=== PATIENT | female | born 1945 | race Caucasian/White ===

== ENCOUNTER 2017-03-17 21:18 | Inpatient (IN) | payer MEDICARE, BC ==
[~2017-03-17] VITALS: Ht 157.5 cm; Wt 46.4 kg
[~2017-03-17 21:18] MED LIST: ASPI-1009 PO; ATOR10TA PO; CHOL10002 PO; CYAN-19 PO; DENO60DI SQ; FERGLU300T PO; LORA10CA PO; NITR-79 PO; NITR100C6 PO; OMEP40CA37 PO; OXYB5TAB11 PO; VALS1TAB81 PO
[2017-03-17] MEDS ORDERED: iohexol 300mg/ml 100ml inj. ONE (21:58)
[2017-03-17 22:05] LABS: HEMATOCRIT 38.7 % (35.0-45.0); HEMOGLOBIN 12.6 g/dl (12.0-16.0); MEAN CORPUSCULAR HEMOGLOBIN 24.1 PG (27.0-31.0); MEAN CORPUSCULAR HGB CONC 32.4 % (33.0-36.5); MEAN CORPUSCULAR VOLUME 74.2 FL (78-98); PLATELET COUNT 266 X10'3 (140-440); RED BLOOD COUNT 5.22 X10'6 (4.20-5.60); RED CELL DISTRIBUTION WIDTH 25.9 % (11.5-14.5); WHITE BLOOD COUNT 11.8 X10'3 (4.5-11.0)
[2017-03-17 22:18] LABS: PARTIAL THROMBOPLASTIN TIME 24 SECONDS (22-32)
[2017-03-17 22:28] LABS: ALANINE AMINOTRANSFERASE 23 U/L (12-78); ALBUMIN 3.9 G/DL (3.4-5.0); ALKALINE PHOSPHATASE 100 IU/L (46-116); ANION GAP 12 (8-16); ASPARTATE AMINO TRANSFERASE 19 U/L (10-37); BILIRUBIN,TOTAL 0.3 MG/DL (0.1-1.0); BLOOD UREA NITROGEN 7 MG/DL (7-18); BUN/CREATININE RATIO 7.7 (6.6-38.0); CALCIUM 8.8 MG/DL (8.5-10.1); CHLORIDE 102 MMOL/L (99-107); CREATININE 0.91 MG/DL (0.40-0.90); GLUCOSE 135 MG/DL (70-104); POTASSIUM 3.6 MMOL/L (3.5-5.1); SODIUM 138 MMOL/L (135-145); TOTAL CARBON DIOXIDE 23.8 MMOL/L (24-32); TOTAL PROTEIN 7.9 G/DL (6.4-8.2); eGFR 61 ML/MIN
[2017-03-17 22:29] LABS: MAGNESIUM 2.2 MG/DL (1.5-2.4)
[2017-03-17 22:44] LABS: ANISOCYTOSIS 3+; PLATELET ESTIMATE NORMAL; TOTAL CELLS COUNTED 100
[2017-03-17 22:45] LABS: MICROCYTOSIS 1+
[2017-03-17 22:46] LABS: ELLIPTOCYTES 1+; TARGET CELLS FEW
[2017-03-17 23:36] LABS: CLARITY,URINE Clear (Clear); COLOR,URINE Yellow (Yellow); GLUCOSE, URINE Negative (Neg); KETONES,URINE Negative (Neg); LEUKOCYTE ESTERASE ,URINE Negative (Neg); NITRITES, URINE Negative (Neg); OCCULT BLOOD,URINE Negative (Neg); PH,URINE 7.5 (4.8-8.0); PROTEIN,URINE 30 mg/dl (Neg); UROBILINOGEN,URINE 0.2 E.U/dL (0.2-1.0)
[2017-03-17] MEDS ORDERED: acetaminophen 325mg tablet PO ONE (23:40)
[2017-03-17 23:59] LABS: UA COLLECTION TYPE STRAIGHT CATH
[2017-03-18 00:28] LABS: BACTERIA,URINE NONE SEEN /HPF (Neg); MUCUS STRANDS NONE SEEN /LPF (Neg); RBC,URINE NONE SEEN /HPF (0-2); SQUAMOUS EPITHELIAL CELL,UR FEW /LPF (FEW); WBC,URINE 0-4 /HPF (0-4)
[2017-03-18] MEDS ORDERED: diphenhydrAMINE 25mg capsule PO PRN (00:30)
[2017-03-18] MEDS ORDERED: acetaminophen 325mg tablet PO PRN ×2 (00:30)
[2017-03-18] MEDS ORDERED: diphenhydrAMINE 50 mg/ml inj IV PRN (00:30)
[2017-03-18] MEDS ORDERED: metoclopramide 5 mg/ml inj IV PRN (00:30)
[2017-03-18] MEDS ORDERED: bisacodyl 10mg suppository rectal RC PRN (00:30)
[2017-03-18] MEDS ORDERED: HYDROmorphone 1 mg/ml syringe IV PRN ×2 (00:30)
[2017-03-18] MEDS ORDERED: acetaminophen 650mg rectal suppository RC PRN (00:30)
[2017-03-18] MEDS ORDERED: nicotine 21mg patch - 24 hr TD ONE (00:30)
[2017-03-18] MEDS ORDERED: magnesium hydroxide 30ml (MOM) UD suspension PO PRN (00:30)
[2017-03-18] MEDS ORDERED: HYDROcodone/acetaminophen 5mg/325mg tablet PO PRN (00:30)
[2017-03-18 01:09] LABS: PHOSPHORUS 3.5 MG/DL (2.3-4.5)
[2017-03-18] MEDS: normal saline 1000ml 1,000 ML IV SCH ×3 (01:22→20:42)
[2017-03-18 07:30] VITALS: BP_SYST 172; BP_SYST 177; BP_DIAS 75; BP_DIAS 77
[2017-03-18] MEDS: HYDROcodone/acetaminophen 10/325mg tab PO PRN ×2 (07:31→22:56)
[2017-03-18] MEDS ORDERED: non-formulary drug (Omeprazole (Prilosec) 1 CAP) PO SCH (08:00)
[2017-03-18] MEDS: docusate sod 100mg capsule PO SCH ×2 (08:00→20:00)
[2017-03-18] MEDS: HYDROchlorothiazide 25mg tablet PO SCH (08:04)
[2017-03-18] MEDS: oxybutynin 5mg tablet PO SCH (08:04)
[2017-03-18] MEDS: aspirin 81mg tablet.DR PO SCH (08:04)
[2017-03-18] MEDS: pantoprazole 40mg Tablet.DR PO SCH (08:04)
[2017-03-18] MEDS: heparin, porcine 5000 units/ml vial SQ SCH ×2 (08:05→20:31)
[2017-03-18] MEDS: ferrous gluconate 324mg tablet PO SCH ×2 (09:55→12:30)
[2017-03-18 11:00] VITALS: BP 150/112
[2017-03-18] MEDS ORDERED: levetiracetam 250mg tablet PO ONE (11:00)
[2017-03-18 15:00] VITALS: BP 156/70
[2017-03-18 19:00] VITALS: BP 160/82
[2017-03-18] MEDS: levetiracetam 250mg tablet PO SCH (20:30)
[2017-03-18] MEDS: famotidine 20mg tablet PO SCH (20:30)
[2017-03-18] MEDS: atorvastatin 10mg tablet PO SCH (20:30)
[2017-03-18] MEDS ORDERED: temazepam 15mg capsule PO PRN (21:00)
[2017-03-18 22:00] VITALS: BP 186/82
[2017-03-19 06:00] VITALS: BP 152/75
[2017-03-19 07:02] LABS: HEMATOCRIT 34.1 % (35.0-45.0); HEMOGLOBIN 10.9 g/dl (12.0-16.0); MEAN CORPUSCULAR HEMOGLOBIN 23.7 PG (27.0-31.0); MEAN CORPUSCULAR HGB CONC 31.9 % (33.0-36.5); MEAN CORPUSCULAR VOLUME 74.2 FL (78-98); MEAN PLATELET VOLUME 8.7 FL (7.4-10.4); PLATELET COUNT 222 X10'3 (140-440); RED CELL DISTRIBUTION WIDTH 25.3 % (11.5-14.5); WHITE BLOOD COUNT 4.7 X10'3 (4.5-11.0)
[2017-03-19 07:33] LABS: EOSINOPHILS % (MANUAL) 2 % (0-6); LYMPHOCYTES % (MANUAL) 45 % (21-51); MONOCYTES % (MANUAL) 9 % (2-12); NEUTROPHILS % (MANUAL) 44 % (42-75); TOTAL CELLS COUNTED 100
[2017-03-19 07:34] LABS: ANISOCYTOSIS 3+; PLATELET ESTIMATE NORMAL; SMUDGE CELLS FEW
[2017-03-19 07:35] LABS: ELLIPTOCYTES 1+; SCHISTOCYTES FEW; TARGET CELLS FEW
[2017-03-19 07:40] LABS: ALANINE AMINOTRANSFERASE 19 U/L (12-78); ALBUMIN 2.9 G/DL (3.4-5.0); ALBUMIN/GLOBULIN RATIO 0.9 (1.1-1.5); ALKALINE PHOSPHATASE 81 IU/L (46-116); ANION GAP 8 (8-16); ASPARTATE AMINO TRANSFERASE 16 U/L (10-37); BILIRUBIN,TOTAL 0.3 MG/DL (0.1-1.0); BLOOD UREA NITROGEN 12 MG/DL (7-18); CALCIUM 8.4 MG/DL (8.5-10.1); CHLORIDE 106 MMOL/L (99-107); CREATININE 0.86 MG/DL (0.40-0.90); GLUCOSE 85 MG/DL (70-104); POTASSIUM 3.4 MMOL/L (3.5-5.1); SODIUM 139 MMOL/L (135-145); TOTAL CARBON DIOXIDE 25.2 MMOL/L (24-32); TOTAL PROTEIN 6.2 G/DL (6.4-8.2); eGFR 65 ML/MIN
[2017-03-19] MEDS: normal saline 1000ml 1,000 ML IV SCH (07:56)
[2017-03-19] MEDS: HYDROchlorothiazide 25mg tablet PO SCH (07:57)
[2017-03-19] MEDS: famotidine 20mg tablet PO SCH ×2 (07:57→21:40)
[2017-03-19] MEDS: aspirin 81mg tablet.DR PO SCH (07:57)
[2017-03-19] MEDS: pantoprazole 40mg Tablet.DR PO SCH (07:57)
[2017-03-19] MEDS: levetiracetam 250mg tablet PO SCH ×2 (07:57→21:40)
[2017-03-19] MEDS: HYDROcodone/acetaminophen 10/325mg tab PO PRN (07:58)
[2017-03-19] MEDS: oxybutynin 5mg tablet PO SCH (07:58)
[2017-03-19] MEDS: docusate sod 100mg capsule PO SCH ×2 (08:00→20:00)
[2017-03-19] MEDS: loratadine 10mg tablet PO SCH (08:00)
[2017-03-19] MEDS: vitamin D (cholecalciferol) 1,000 unit tablet PO SCH (08:00)
[2017-03-19] MEDS: ferrous gluconate 324mg tablet PO SCH (08:00)
[2017-03-19] MEDS: cyanocobalamin 500mcg tablet PO SCH (08:00)
[2017-03-19] MEDS: heparin, porcine 5000 units/ml vial SQ SCH ×2 (08:06→21:40)
[2017-03-19 10:00] VITALS: BP 135/69
[2017-03-19] MEDS: nicotine 21mg patch - 24 hr TD SCH (11:08)
[2017-03-19] MEDS ORDERED: potassium Cl 40MEQ/NS 500ml 500 ML IV PRN ×2 (13:30)
[2017-03-19] MEDS ORDERED: potassium Cl 20 mEq SR tablet PO PRN ×2 (13:30)
[2017-03-19 19:00] VITALS: BP 156/115
[2017-03-19] MEDS: atorvastatin 10mg tablet PO SCH (21:40)
[2017-03-19] MEDS: diatr meglu/diatrizoate 30ml oral sol.-(3 dose) bottle PO SCH (21:41)
[2017-03-19 22:00] VITALS: BP 158/84
[2017-03-20] MEDS: ondansetron/PF 4mg/2ml inj IV PRN ×3 (01:47→23:13)
[2017-03-20 06:00] VITALS: BP 132/71
[2017-03-20 06:52] LABS: BASOPHILS % (AUTO) 0.1 % (0-1); EOSINOPHILS # (AUTO) 0.2 X10'3 (0-0.9); EOSINOPHILS % (AUTO) 4.3 % (0-6); HEMATOCRIT 33.9 % (35.0-45.0); LYMPHOCYTES # (AUTO) 1.5 X10'3 (1.1-4.8); LYMPHOCYTES % (AUTO) 28.8 % (21-51); MEAN CORPUSCULAR HGB CONC 32.5 % (33.0-36.5); MEAN CORPUSCULAR VOLUME 73.9 FL (78-98); MEAN PLATELET VOLUME 8.8 FL (7.4-10.4); MONOCYTES # (AUTO) 0.5 X10'3 (0-0.9); MONOCYTES % (AUTO) 8.7 % (2-12); NEUTROPHILS # (AUTO) 3.1 X10'3 (1.8-7.7); NEUTROPHILS % (AUTO) 58.1 % (42-75); PLATELET COUNT 226 X10'3 (140-440); RED BLOOD COUNT 4.59 X10'6 (4.20-5.60); RED CELL DISTRIBUTION WIDTH 24.8 % (11.5-14.5); WHITE BLOOD COUNT 5.3 X10'3 (4.5-11.0)
[2017-03-20 07:00] LABS: ALANINE AMINOTRANSFERASE 76 U/L (12-78); ALBUMIN/GLOBULIN RATIO 0.9 (1.1-1.5); ALKALINE PHOSPHATASE 157 IU/L (46-116); ANION GAP 7 (8-16); ASPARTATE AMINO TRANSFERASE 62 U/L (10-37); BILIRUBIN,TOTAL 0.4 MG/DL (0.1-1.0); BLOOD UREA NITROGEN 14 MG/DL (7-18); BUN/CREATININE RATIO 15.2 (6.6-38.0); CALCIUM 9.2 MG/DL (8.5-10.1); CHLORIDE 104 MMOL/L (99-107); CREATININE 0.92 MG/DL (0.40-0.90); GLUCOSE 83 MG/DL (70-104); POTASSIUM 4.1 MMOL/L (3.5-5.1); SODIUM 139 MMOL/L (135-145); TOTAL CARBON DIOXIDE 28.4 MMOL/L (24-32); TOTAL PROTEIN 6.4 G/DL (6.4-8.2); eGFR 60 ML/MIN
[2017-03-20] MEDS: cyanocobalamin 500mcg tablet PO SCH (08:00)
[2017-03-20] MEDS: vitamin D (cholecalciferol) 1,000 unit tablet PO SCH (08:00)
[2017-03-20] MEDS: ferrous gluconate 324mg tablet PO SCH (08:00)
[2017-03-20] MEDS: loratadine 10mg tablet PO SCH (08:00)
[2017-03-20] MEDS: docusate sod 100mg capsule PO SCH ×2 (08:00→20:33)
[2017-03-20] MEDS: nicotine 21mg patch - 24 hr TD SCH (08:14)
[2017-03-20] MEDS: pantoprazole 40mg Tablet.DR PO SCH (08:16)
[2017-03-20] MEDS: famotidine 20mg tablet PO SCH ×2 (08:17→20:33)
[2017-03-20] MEDS: levetiracetam 250mg tablet PO SCH ×2 (08:17→20:33)
[2017-03-20] MEDS: aspirin 81mg tablet.DR PO SCH (08:18)
[2017-03-20] MEDS: HYDROchlorothiazide 25mg tablet PO SCH (08:18)
[2017-03-20] MEDS: oxybutynin 5mg tablet PO SCH (08:19)
[2017-03-20] MEDS: heparin, porcine 5000 units/ml vial SQ SCH ×2 (08:20→20:32)
[2017-03-20] MEDS: diatr meglu/diatrizoate 30ml oral sol.-(3 dose) bottle PO SCH ×2 (08:27→10:39)
[2017-03-20 09:43] LABS: ANISOCYTOSIS 3+; PLATELET ESTIMATE NORMAL
[2017-03-20 09:45] LABS: ELLIPTOCYTES 1+; SCHISTOCYTES FEW; TARGET CELLS FEW
[2017-03-20 10:00] VITALS: BP 126/69
[2017-03-20] MEDS ORDERED: iohexol 300mg/ml 100ml inj. ONE (10:31)
[2017-03-20] MEDS: HYDROcodone/acetaminophen 10/325mg tab PO PRN (13:50)
[2017-03-20] MEDS ORDERED: bisacodyl 10mg suppository rectal RC STA (16:46)
[2017-03-20 19:00] VITALS: BP 131/73
[2017-03-20] MEDS: atorvastatin 10mg tablet PO SCH (20:33)
[2017-03-20 23:00] VITALS: BP 136/12
[2017-03-21 03:58] LABS: OCCULT BLOOD STOOL NEGATIVE (Neg)
[2017-03-21 05:00] VITALS: BP 150/75
[2017-03-21 06:22] LABS: BASOPHILS % (AUTO) 0.4 % (0-1); EOSINOPHILS # (AUTO) 0.1 X10'3 (0-0.9); EOSINOPHILS % (AUTO) 2.7 % (0-6); HEMATOCRIT 34.9 % (35.0-45.0); HEMOGLOBIN 11.1 g/dl (12.0-16.0); LYMPHOCYTES # (AUTO) 1.4 X10'3 (1.1-4.8); LYMPHOCYTES % (AUTO) 25.8 % (21-51); MEAN CORPUSCULAR HGB CONC 31.9 % (33.0-36.5); MEAN CORPUSCULAR VOLUME 75.1 FL (78-98); MEAN PLATELET VOLUME 8.8 FL (7.4-10.4); MONOCYTES # (AUTO) 0.5 X10'3 (0-0.9); MONOCYTES % (AUTO) 9.2 % (2-12); NEUTROPHILS # (AUTO) 3.4 X10'3 (1.8-7.7); NEUTROPHILS % (AUTO) 61.9 % (42-75); PLATELET COUNT 225 X10'3 (140-440); RED BLOOD COUNT 4.65 X10'6 (4.20-5.60); RED CELL DISTRIBUTION WIDTH 25.2 % (11.5-14.5); WHITE BLOOD COUNT 5.5 X10'3 (4.5-11.0)
[2017-03-21 07:25] LABS: ALANINE AMINOTRANSFERASE 47 U/L (12-78); ALBUMIN 3.1 G/DL (3.4-5.0); ALBUMIN/GLOBULIN RATIO 0.9 (1.1-1.5); ALKALINE PHOSPHATASE 132 IU/L (46-116); ANION GAP 6 (8-16); ASPARTATE AMINO TRANSFERASE 29 U/L (10-37); BILIRUBIN,TOTAL 0.3 MG/DL (0.1-1.0); BLOOD UREA NITROGEN 14 MG/DL (7-18); BUN/CREATININE RATIO 15.9 (6.6-38.0); CHLORIDE 101 MMOL/L (99-107); CREATININE 0.88 MG/DL (0.40-0.90); GLUCOSE 86 MG/DL (70-104); POTASSIUM 4.1 MMOL/L (3.5-5.1); SODIUM 135 MMOL/L (135-145); TOTAL CARBON DIOXIDE 27.7 MMOL/L (24-32); TOTAL PROTEIN 6.6 G/DL (6.4-8.2); eGFR 63 ML/MIN
[2017-03-21] MEDS: vitamin D (cholecalciferol) 1,000 unit tablet PO SCH (08:00)
[2017-03-21] MEDS: pantoprazole 40mg Tablet.DR PO SCH (09:55)
[2017-03-21] MEDS: docusate sod 100mg capsule PO SCH ×3 (09:56→20:35)
[2017-03-21] MEDS: loratadine 10mg tablet PO SCH (09:56)
[2017-03-21] MEDS: oxybutynin 5mg tablet PO SCH (09:57)
[2017-03-21] MEDS: levetiracetam 250mg tablet PO SCH ×2 (09:57→20:33)
[2017-03-21] MEDS: ferrous gluconate 324mg tablet PO SCH (09:59)
[2017-03-21 10:00] VITALS: BP 155/85
[2017-03-21] MEDS: heparin, porcine 5000 units/ml vial SQ SCH ×2 (10:00→20:33)
[2017-03-21] MEDS: cyanocobalamin 500mcg tablet PO SCH (10:00)
[2017-03-21] MEDS: famotidine 20mg tablet PO SCH ×2 (10:01→20:33)
[2017-03-21] MEDS: HYDROchlorothiazide 25mg tablet PO SCH (10:01)
[2017-03-21] MEDS: nicotine 21mg patch - 24 hr TD SCH (10:01)
[2017-03-21] MEDS: aspirin 81mg tablet.DR PO SCH (10:01)
[2017-03-21 10:05] LABS: ANISOCYTOSIS 3+; PLATELET ESTIMATE NORMAL
[2017-03-21 10:06] LABS: ELLIPTOCYTES 1+; SCHISTOCYTES FEW; TARGET CELLS FEW
[2017-03-21 18:00] VITALS: BP 170/94
[2017-03-21] MEDS: atorvastatin 10mg tablet PO SCH ×2 (20:33→20:36)
[2017-03-21 22:00] VITALS: BP 141/71
[2017-03-22] MEDS: HYDROcodone/acetaminophen 10/325mg tab PO PRN (01:36)
[2017-03-22] MEDS: ondansetron/PF 4mg/2ml inj IV PRN ×2 (01:37→08:35)
[2017-03-22 02:00] VITALS: BP 130/69
[2017-03-22 05:00] VITALS: BP 120/67
[2017-03-22 05:50] LABS: HEMATOCRIT 34.3 % (35.0-45.0); MEAN CORPUSCULAR HEMOGLOBIN 23.9 PG (27.0-31.0); MEAN CORPUSCULAR HGB CONC 32.2 % (33.0-36.5); MEAN CORPUSCULAR VOLUME 74.3 FL (78-98); MEAN PLATELET VOLUME 8.9 FL (7.4-10.4); PLATELET COUNT 223 X10'3 (140-440); RED BLOOD COUNT 4.62 X10'6 (4.20-5.60); RED CELL DISTRIBUTION WIDTH 24.4 % (11.5-14.5); WHITE BLOOD COUNT 4.9 X10'3 (4.5-11.0)
[2017-03-22 07:23] LABS: ALANINE AMINOTRANSFERASE 44 U/L (12-78); ALBUMIN 3.1 G/DL (3.4-5.0); ALBUMIN/GLOBULIN RATIO 0.9 (1.1-1.5); ALKALINE PHOSPHATASE 127 IU/L (46-116); ANION GAP 10 (8-16); ASPARTATE AMINO TRANSFERASE 26 U/L (10-37); BILIRUBIN,TOTAL 0.3 MG/DL (0.1-1.0); BLOOD UREA NITROGEN 15 MG/DL (7-18); BUN/CREATININE RATIO 15.2 (6.6-38.0); CALCIUM 8.9 MG/DL (8.5-10.1); CHLORIDE 96 MMOL/L (99-107); CREATININE 0.99 MG/DL (0.40-0.90); GLUCOSE 92 MG/DL (70-104); POTASSIUM 3.8 MMOL/L (3.5-5.1); SODIUM 131 MMOL/L (135-145); TOTAL CARBON DIOXIDE 25.4 MMOL/L (24-32); TOTAL PROTEIN 6.7 G/DL (6.4-8.2); eGFR 55 ML/MIN
[2017-03-22 07:28] LABS: ANISOCYTOSIS 3+; NUCLEATED RED BLOOD CELLS 1 /100WBC (0-0); PLATELET ESTIMATE NORMAL; ROULEAUX 1+; TOTAL CELLS COUNTED 100
[2017-03-22 07:29] LABS: ELLIPTOCYTES 1+; HYPOCHROMASIA 1+; MICROCYTOSIS 1+; POLYCHROMASIA FEW; SCHISTOCYTES FEW
[2017-03-22 07:30] LABS: TARGET CELLS FEW
[2017-03-22] MEDS: cyanocobalamin 500mcg tablet PO SCH (08:00)
[2017-03-22] MEDS: vitamin D (cholecalciferol) 1,000 unit tablet PO SCH (08:00)
[2017-03-22] MEDS: loratadine 10mg tablet PO SCH (08:00)
[2017-03-22] MEDS: aspirin 81mg tablet.DR PO SCH (08:35)
[2017-03-22] MEDS: pantoprazole 40mg Tablet.DR PO SCH (08:35)
[2017-03-22] MEDS: levetiracetam 250mg tablet PO SCH ×2 (08:35→19:57)
[2017-03-22] MEDS: nicotine 21mg patch - 24 hr TD SCH (08:35)
[2017-03-22] MEDS: oxybutynin 5mg tablet PO SCH (08:35)
[2017-03-22] MEDS: HYDROchlorothiazide 25mg tablet PO SCH (08:35)
[2017-03-22] MEDS: heparin, porcine 5000 units/ml vial SQ SCH ×2 (08:36→19:56)
[2017-03-22] MEDS: docusate sod 100mg capsule PO SCH ×2 (08:36→19:56)
[2017-03-22] MEDS: ferrous gluconate 324mg tablet PO SCH (08:43)
[2017-03-22] MEDS: famotidine 20mg tablet PO SCH ×2 (08:43→19:56)
[2017-03-22 10:00] VITALS: BP 144/69
[2017-03-22] MEDS ORDERED: FERGLU300T PO (16:34)
[2017-03-22] MEDS ORDERED: DIO160T PO (16:36)
[2017-03-22] MEDS ORDERED: iohexol 350MG/ML 100ml bottle IV ONE (17:36)
[2017-03-22 18:00] VITALS: BP 168/91
[2017-03-22] MEDS: atorvastatin 10mg tablet PO SCH (19:57)
[2017-03-22 22:00] VITALS: BP 155/78
[2017-03-23 05:00] VITALS: BP 101/51
[2017-03-23] MEDS: HYDROcodone/acetaminophen 10/325mg tab PO PRN (05:29)
[2017-03-23] MEDS: mag hydrox/Alum hydrox/simeth 30ml oral suspension PO PRN ×2 (05:39→09:10)
[2017-03-23 06:30] LABS: HEMATOCRIT 36.2 % (35.0-45.0); HEMOGLOBIN 11.9 g/dl (12.0-16.0); MEAN CORPUSCULAR HEMOGLOBIN 24.4 PG (27.0-31.0); MEAN CORPUSCULAR HGB CONC 32.8 % (33.0-36.5); MEAN CORPUSCULAR VOLUME 74.4 FL (78-98); MEAN PLATELET VOLUME 8.7 FL (7.4-10.4); PLATELET COUNT 228 X10'3 (140-440); RED BLOOD COUNT 4.87 X10'6 (4.20-5.60); RED CELL DISTRIBUTION WIDTH 24.3 % (11.5-14.5); WHITE BLOOD COUNT 5.4 X10'3 (4.5-11.0)
[2017-03-23 06:50] LABS: ALANINE AMINOTRANSFERASE 40 U/L (12-78); ALBUMIN 3.2 G/DL (3.4-5.0); ALBUMIN/GLOBULIN RATIO 0.9 (1.1-1.5); ALKALINE PHOSPHATASE 119 IU/L (46-116); ANION GAP 6 (8-16); ASPARTATE AMINO TRANSFERASE 32 U/L (10-37); BILIRUBIN,TOTAL 0.2 MG/DL (0.1-1.0); BLOOD UREA NITROGEN 17 MG/DL (7-18); BUN/CREATININE RATIO 15.7 (6.6-38.0); CALCIUM 9.3 MG/DL (8.5-10.1); CHLORIDE 94 MMOL/L (99-107); CHOL/HDL RATIO 2.2 (0.00-4.99); CHOLESTEROL 124 MG/DL (0-200); CREATININE 1.08 MG/DL (0.40-0.90); GLUCOSE 95 MG/DL (70-104); HDL CHOLESTEROL 57 MG/DL (35-60); LDL CHOLESTEROL 60 MG/DL (50-100); POTASSIUM 5.2 MMOL/L (3.5-5.1); SODIUM 130 MMOL/L (135-145); TOTAL CARBON DIOXIDE 30.4 MMOL/L (24-32); TOTAL PROTEIN 6.9 G/DL (6.4-8.2); TRIGLYCERIDES 61 MG/DL (20-135); eGFR 50 ML/MIN
[2017-03-23 07:42] LABS: TOTAL CELLS COUNTED 100
[2017-03-23 07:43] LABS: ANISOCYTOSIS 3+; ELLIPTOCYTES 1+; HYPOCHROMASIA 1+; MICROCYTOSIS 1+; PLATELET ESTIMATE NORMAL; ROULEAUX 1+; SCHISTOCYTES FEW; TARGET CELLS FEW
[2017-03-23] MEDS: vitamin D (cholecalciferol) 1,000 unit tablet PO SCH (08:00)
[2017-03-23] MEDS: cyanocobalamin 500mcg tablet PO SCH (08:00)
[2017-03-23] MEDS ORDERED: aspirin/dipyridamole 25mg/200mg SR. capsule PO SCH (08:00)
[2017-03-23] MEDS: loratadine 10mg tablet PO SCH (08:00)
[2017-03-23] MEDS: pantoprazole 40mg Tablet.DR PO SCH (08:16)
[2017-03-23] MEDS: HYDROchlorothiazide 25mg tablet PO SCH (08:16)
[2017-03-23] MEDS: famotidine 20mg tablet PO SCH (08:16)
[2017-03-23] MEDS: levetiracetam 250mg tablet PO SCH (08:16)
[2017-03-23] MEDS: oxybutynin 5mg tablet PO SCH (08:16)
[2017-03-23] MEDS: docusate sod 100mg capsule PO SCH (08:16)
[2017-03-23] MEDS: ferrous gluconate 324mg tablet PO SCH (08:16)
[2017-03-23] MEDS: heparin, porcine 5000 units/ml vial SQ SCH (08:17)
[2017-03-23 10:00] VITALS: BP 114/52
[2017-03-23] MEDS ORDERED: ASPI1CPM4 PO (10:48)
[2017-03-23] MEDS ORDERED: nicotine 21mg patch - 24 hr TD ONE (11:05)
== END 2017-03-23 12:10 | disposition home or self-care (01) | DRG 312 ==
LOC: ER 21:19 → ED HOLD 03-18 00:28 → ORTHO 4S 03-18 07:15
PROVIDERS: ADMIT Family Medicine; ATTEND Family Medicine
PROC: 4B02XSZ Measurement of Cardiac Pacemaker, External Approach (ICD-10-PCS; 2017-03-18)
PROC: BW211ZZ Computerized Tomography (CT Scan) of Abdomen and Pelvis using Low Osmolar Contrast (ICD-10-PCS; principal; 2017-03-20)
PROC: B3281ZZ Computerized Tomography (CT Scan) of Bilateral Internal Carotid Arteries using Low Osmolar Contrast (ICD-10-PCS; 2017-03-22)
PROC: B3201ZZ Computerized Tomography (CT Scan) of Thoracic Aorta using Low Osmolar Contrast (ICD-10-PCS; 2017-03-22)
PROC: B32S1ZZ Computerized Tomography (CT Scan) of Right Pulmonary Artery using Low Osmolar Contrast (ICD-10-PCS; 2017-03-22)
PROC: B32T1ZZ Computerized Tomography (CT Scan) of Left Pulmonary Artery using Low Osmolar Contrast (ICD-10-PCS; 2017-03-22)
DX: R55 Syncope and collapse (principal); I67.1 Cerebral aneurysm, nonruptured; R18.8 Other ascites; E86.0 Dehydration; E03.9 Hypothyroidism, unspecified; I10 Essential (primary) hypertension; R19.7 Diarrhea, unspecified; N26.1 Atrophy of kidney (terminal); D72.829 Elevated white blood cell count, unspecified; R80.9 Proteinuria, unspecified; I73.9 Peripheral vascular disease, unspecified; K44.9 Diaphragmatic hernia without obstruction or gangrene; F17.210 Nicotine dependence, cigarettes, uncomplicated; Z90.49 Acquired absence of other specified parts of digestive tract; Z95.0 Presence of cardiac pacemaker; Z98.62 Peripheral vascular angioplasty status; Z88.2 Allergy status to sulfonamides; Z88.8 Allergy status to other drugs, medicaments and biological substances; Z79.82 Long term (current) use of aspirin; Z79.899 Other long term (current) drug therapy; Z87.11 Personal history of peptic ulcer disease
CPT/HCPCS: 36415; 70450; 70496; 70544; 70547; 70551; 71275; 74175; 74177; 80053; 80061; 81001; 82272; 83735; 83880; 84100; 84443; 84484; 85025; 85610; 85730; 87045; 87046; 87070; 89055; 93005; 93306; 93880; 99285; A4353; J1644; J2270; J2405; J7030; Q9963; Q9967

== ENCOUNTER → 2018-07-28 | Outpatient (CLI) | payer MEDICARE, BC, OTHER ==
[~2018-07-28] MED LIST changes: +ASPI1CPM4 PO; -CYAN-19 PO; +DIO160T PO; -LORA10CA PO; -NITR-79 PO; -NITR100C6 PO; -VALS1TAB81 PO
== END | disposition home or self-care (01) ==
LOC: RAD 10:52
DX: M50.221 Other cervical disc displacement at C4-C5 level (principal); M48.02 Spinal stenosis, cervical region; M25.78 Osteophyte, vertebrae; G45.9 Transient cerebral ischemic attack, unspecified; I10 Essential (primary) hypertension; Z95.0 Presence of cardiac pacemaker; Z87.891 Personal history of nicotine dependence
CPT/HCPCS: 72141

== ENCOUNTER 2018-12-08 08:35 | Outpatient (CLI) | payer MEDICARE, BC, OTHER ==
[~2018-12-08 08:35] MED LIST changes: +OMEP40CA13 PO; -OMEP40CA37 PO; -OXYB5TAB11 PO; +OXYB5TAB16 PO
== END 2018-12-08 23:59 | disposition home or self-care (01) ==
LOC: RAD 08:35
DX: G52.9 Cranial nerve disorder, unspecified (principal); R55 Syncope and collapse; I10 Essential (primary) hypertension; Z95.0 Presence of cardiac pacemaker; Z87.891 Personal history of nicotine dependence
CPT/HCPCS: 70544

== ENCOUNTER 2019-02-12 19:08 | Emergency (ER) | payer MEDICARE, BC, OTHER ==
[~2019-02-12] VITALS: Ht 160 cm; Wt 60.0 kg
[2019-02-12] MEDS ORDERED: nitroGLYCERIN 0.4mg/hour patch TD ONE (19:15)
[2019-02-12] MEDS ORDERED: hyDRALAzine 10mg tablet PO SCH (19:20)
[2019-02-12] MEDS ORDERED: hyDRALAzine 10mg tablet PO ONE (19:20)
[2019-02-12] MEDS ORDERED: hydrALAZINE 20mg/ml inj. IV ONE (19:20)
[2019-02-12 19:51] LABS: BASOPHILS # (AUTO) 0.1 X10'3 (0-0.2); BASOPHILS % (AUTO) 0.7 % (0-1); EOSINOPHILS # (AUTO) 0.1 X10'3 (0-0.9); EOSINOPHILS % (AUTO) 0.8 % (0-6); HEMATOCRIT 33.3 % (35.0-45.0); LYMPHOCYTES # (AUTO) 0.9 X10'3 (1.1-4.8); LYMPHOCYTES % (AUTO) 12.2 % (21-51); MEAN CORPUSCULAR HEMOGLOBIN 24.9 PG (27.0-31.0); MEAN CORPUSCULAR VOLUME 75.3 FL (78-98); MEAN PLATELET VOLUME 7.3 FL (7.4-10.4); MONOCYTES # (AUTO) 0.9 X10'3 (0-0.9); MONOCYTES % (AUTO) 11.5 % (2-12); NEUTROPHILS # (AUTO) 5.8 X10'3 (1.8-7.7); NEUTROPHILS % (AUTO) 74.8 % (42-75); PLATELET COUNT 281 X10'3 (140-440); RED BLOOD COUNT 4.42 X10'6 (4.20-5.60); RED CELL DISTRIBUTION WIDTH 18.5 % (11.5-14.5); WHITE BLOOD COUNT 7.8 X10'3 (4.5-11.0)
[2019-02-12 19:54] LABS: ALANINE AMINOTRANSFERASE 21 U/L (12-78); ALBUMIN 3.9 G/DL (3.4-5.0); ALBUMIN/GLOBULIN RATIO 0.9 (1.1-1.5); ALKALINE PHOSPHATASE 135 IU/L (46-116); ANION GAP 11 (8-16); ASPARTATE AMINO TRANSFERASE 23 U/L (10-37); BILIRUBIN,TOTAL 0.2 MG/DL (0.1-1.0); BLOOD UREA NITROGEN 25 MG/DL (7-18); BUN/CREATININE RATIO 22.1 (6.6-38.0); CHLORIDE 93 MMOL/L (99-107); CREATININE 1.13 MG/DL (0.40-0.90); GLUCOSE 108 MG/DL (70-104); POTASSIUM 4.1 MMOL/L (3.5-5.1); SODIUM 130 MMOL/L (135-145); TOTAL PROTEIN 8.1 G/DL (6.4-8.2); eGFR 47 ML/MIN
[2019-02-12 20:01] LABS: MAGNESIUM 2.1 MG/DL (1.5-2.4); TROPONIN I < 0.04 NG/ML (0.0-0.05)
[2019-02-12 20:09] LABS: CLARITY,URINE SLIGHTLY CLOUDY (Clear); COLOR,URINE YELLOW (Yellow); GLUCOSE, URINE NEGATIVE (Neg); KETONES,URINE NEGATIVE (Neg); LEUKOCYTE ESTERASE ,URINE LARGE (Neg); NITRITES, URINE POSITIVE (Neg); OCCULT BLOOD,URINE NEGATIVE (Neg); PROTEIN,URINE NEGATIVE (Neg); UROBILINOGEN,URINE 0.2 E.U/dL (0.2-1.0)
[2019-02-12 20:15] LABS: BACTERIA,URINE 3+ /HPF (Neg); RBC,URINE NONE SEEN /HPF (0-2); SQUAMOUS EPITHELIAL CELL,UR MODERATE /LPF (FEW); UA COLLECTION TYPE CLN CATCH MIDSTREAM
[2019-02-12 20:16] LABS: MUCUS STRANDS NONE SEEN /LPF (Neg)
[2019-02-12] MEDS ORDERED: iohexol 350MG/ML 100ml bottle IV ONE (20:28)
[2019-02-12] MEDS ORDERED: normal saline 1000ml 1,000 ML IV ONE (20:39)
[2019-02-12] MEDS ORDERED: normal saline 1000ML IV soln IVB ONE (20:40)
[2019-02-12] MEDS ORDERED: acetaminophen 325mg tablet PO ONE (21:05)
[2019-02-12 22:12] VITALS: BP 140/70
== END 2019-02-12 22:31 | disposition home or self-care (01) ==
LOC: ER 19:08
DX: I16.0 Hypertensive urgency (principal); R42 Dizziness and giddiness; F17.210 Nicotine dependence, cigarettes, uncomplicated; Z90.49 Acquired absence of other specified parts of digestive tract; Z95.0 Presence of cardiac pacemaker; Z98.890 Other specified postprocedural states; Z86.69 Personal history of other diseases of the nervous system and sense organs; Z88.2 Allergy status to sulfonamides; Z88.1 Allergy status to other antibiotic agents; Z79.82 Long term (current) use of aspirin; Z79.899 Other long term (current) drug therapy
CPT/HCPCS: 36415; 70496; 71045; 80053; 81001; 83735; 83880; 84484; 85025; 87077; 87088; 87186; 93005; 96361; 96374; 99284; J0360; J7030; J7040; Q9967

== ENCOUNTER 2019-07-10 13:16 | Emergency (ER) | payer MEDICARE, BC ==
[~2019-07-10] VITALS: Ht 160 cm; Wt 61.0 kg
[2019-07-10 13:36] VITALS: BP 191/105
== END 2019-07-10 14:15 | disposition home or self-care (01) ==
LOC: ER 13:17
DX: S60.455A Superficial foreign body of left ring finger, initial encounter (principal); M79.89 Other specified soft tissue disorders; I10 Essential (primary) hypertension; Z86.69 Personal history of other diseases of the nervous system and sense organs; Z90.89 Acquired absence of other organs; Z98.890 Other specified postprocedural states; Z88.1 Allergy status to other antibiotic agents; Z88.2 Allergy status to sulfonamides; Z79.82 Long term (current) use of aspirin; Z79.899 Other long term (current) drug therapy; X58.XXXA Exposure to other specified factors, initial encounter; Y93.89 Activity, other specified; Y99.8 Other external cause status; Y92.89 Other specified places as the place of occurrence of the external cause
CPT/HCPCS: 99284

== ENCOUNTER 2023-05-05 10:07 | Emergency (ER) | payer MEDICARE, BC ==
[~2023-05-05] VITALS: Ht 157.5 cm; Wt 40.9 kg
[~2023-05-05 10:07] MED LIST changes: -FERGLU300T PO; +FERR324T23 PO; -OMEP40CA13 PO; +OMEP40CA21 PO; -OXYB5TAB16 PO; +OXYB5TAB21 PO
[2023-05-05 10:16] VITALS: TEMP 97.7; O2SAT 97
[2023-05-05 11:40] LABS: ALANINE AMINOTRANSFERASE 16 U/L (12-78); ALBUMIN 3.3 G/DL (3.4-5.0); ALBUMIN/GLOBULIN RATIO 0.8 (1.1-1.5); ALKALINE PHOSPHATASE 122 IU/L (46-116); ANION GAP 13 (8-16); ASPARTATE AMINO TRANSFERASE 27 U/L (10-37); BILIRUBIN,TOTAL 0.5 MG/DL (0.1-1.0); BLOOD UREA NITROGEN 18 MG/DL (7-18); CALCIUM 8.9 MG/DL (8.5-10.1); CHLORIDE 109 MMOL/L (99-107); GLUCOSE 85 MG/DL (70-104); LIPASE 20 U/L (16-77); SODIUM 143 MMOL/L (135-145); TOTAL CARBON DIOXIDE 21.1 MMOL/L (24-32); TOTAL PROTEIN 7.2 G/DL (6.4-8.2); eCRCL 34 ML/MIN; eGFR 61 ML/MIN
[2023-05-05 11:58] LABS: BASOPHILS % (AUTO) 0.7 % (0-1); EOSINOPHILS # (AUTO) 0.2 X10'3 (0-0.9); EOSINOPHILS % (AUTO) 3.2 % (0-6); HEMATOCRIT 38.1 % (35.0-45.0); HEMOGLOBIN 12.7 g/dl (12.0-16.0); LYMPHOCYTES # (AUTO) 1.1 X10'3 (1.1-4.8); LYMPHOCYTES % (AUTO) 16.2 % (21-51); MEAN CORPUSCULAR HEMOGLOBIN 31.7 PG (27.0-31.0); MEAN CORPUSCULAR HGB CONC 33.4 g/dL (33.0-36.5); MEAN PLATELET VOLUME 7.6 FL (7.4-10.4); MONOCYTES # (AUTO) 0.6 X10'3 (0-0.9); MONOCYTES % (AUTO) 8.5 % (2-12); NEUTROPHILS # (AUTO) 4.7 X10'3 (1.8-7.7); NEUTROPHILS % (AUTO) 71.4 % (42-75); PLATELET COUNT 237 X10'3 (140-440); RED BLOOD COUNT 4.01 X10'6 (4.20-5.60); RED CELL DISTRIBUTION WIDTH 14.2 % (11.5-14.5); WHITE BLOOD COUNT 6.6 X10'3 (4.5-11.0)
[2023-05-05 12:01] LABS: BILIRUBIN,URINE NEGATIVE (Neg); CLARITY,URINE SLIGHTLY CLOUDY (Clear); COLOR,URINE YELLOW (Yellow); GLUCOSE, URINE NEGATIVE (Neg); KETONES,URINE NEGATIVE (Neg); LEUKOCYTE ESTERASE ,URINE NEGATIVE (Neg); NITRITES, URINE NEGATIVE (Neg); OCCULT BLOOD,URINE NEGATIVE (Neg); PH,URINE 5.5 (4.8-8.0); PROTEIN,URINE NEGATIVE (Neg); UA COLLECTION TYPE STRAIGHT CATH; UROBILINOGEN,URINE 0.2 E.U/dL (0.2-1.0)
[2023-05-05 12:38] LABS: BACTERIA,URINE NONE SEEN /HPF (Neg); MUCUS STRANDS MODERATE /LPF (Neg); RBC,URINE 0-2 /HPF (0-2); SQUAMOUS EPITHELIAL CELL,UR FEW /LPF (FEW); WBC,URINE 0-4 /HPF (0-4)
[2023-05-05 12:40] VITALS: BP 178/73; PULSE 77; RESP 21
[2023-05-05 15:15] LABS: BASOPHILS % (AUTO) 0.6 % (0-1); EOSINOPHILS # (AUTO) 0.2 X10'3 (0-0.9); EOSINOPHILS % (AUTO) 2.9 % (0-6); HEMATOCRIT 42.9 % (35.0-45.0); LYMPHOCYTES # (AUTO) 1.3 X10'3 (1.1-4.8); MEAN CORPUSCULAR HEMOGLOBIN 31.4 PG (27.0-31.0); MEAN CORPUSCULAR HGB CONC 32.6 g/dL (33.0-36.5); MEAN CORPUSCULAR VOLUME 96.4 FL (78-98); MEAN PLATELET VOLUME 7.7 FL (7.4-10.4); MONOCYTES # (AUTO) 0.7 X10'3 (0-0.9); MONOCYTES % (AUTO) 9.4 % (2-12); NEUTROPHILS # (AUTO) 5.6 X10'3 (1.8-7.7); NEUTROPHILS % (AUTO) 71.1 % (42-75); PLATELET COUNT 242 X10'3 (140-440); RED BLOOD COUNT 4.45 X10'6 (4.20-5.60); RED CELL DISTRIBUTION WIDTH 14.2 % (11.5-14.5); WHITE BLOOD COUNT 7.9 X10'3 (4.5-11.0)
[2023-05-05] MEDS ORDERED: DOCU-148 PO (15:48)
[2023-05-05] MEDS ORDERED: MAGN296S68 PO (15:48)
== END 2023-05-05 17:02 | disposition home or self-care (01) ==
LOC: ER 10:08
DX: N39.0 Urinary tract infection, site not specified (principal); K59.00 Constipation, unspecified; Z90.49 Acquired absence of other specified parts of digestive tract; Z88.1 Allergy status to other antibiotic agents; Z88.2 Allergy status to sulfonamides; Z79.82 Long term (current) use of aspirin; Z79.899 Other long term (current) drug therapy
CPT/HCPCS: 36415; 51702; 74018; 74176; 80053; 81001; 83605; 83690; 85025; 99284; A4314